=== PATIENT | female | born 1960 | race Caucasian/White ===

== ENCOUNTER 2022-12-11 11:48 | Day surgery (SDC) | payer OTHER ==
[~2022-12-11] VITALS: Ht 160 cm; Wt 122.5 kg
[2022-12-11] MEDS ORDERED: fentaNYL citrate 0.05 MG/ML VIAL ONE (13:55)
[2022-12-11] MEDS ORDERED: LIDOCAINE 2% 100 MG/5 ML UJET TP ONE (13:55)
[2022-12-11] MEDS ORDERED: MIDAZOLAM 2 MG/2 ML VIAL ONE ×2 (14:03→14:04)
[2022-12-11] MEDS ORDERED: fentaNYL citrate 0.05 MG/ML VIAL IVP ONE (15:05)
== END 2022-12-11 15:15 | disposition home or self-care (01) ==
LOC: MDS 11:48 → MMU 11:50 → MDS 15:15
PROVIDERS: ATTEND Internal Medicine Gastroenterology
DX: Z12.11 Encounter for screening for malignant neoplasm of colon (principal); K57.30 Diverticulosis of large intestine without perforation or abscess without bleeding; M10.9 Gout, unspecified; F41.9 Anxiety disorder, unspecified; F32.A Depression, unspecified; E66.9 Obesity, unspecified; K21.9 Gastro-esophageal reflux disease without esophagitis; Z90.49 Acquired absence of other specified parts of digestive tract; F17.210 Nicotine dependence, cigarettes, uncomplicated; Z98.890 Other specified postprocedural states; Z68.42 Body mass index [BMI] 45.0-49.9, adult
CPT/HCPCS: 45378; J2250; J3010